=== PATIENT | male | born 1945 | race Caucasian/White ===

== ENCOUNTER 2019-05-15 20:07 | Inpatient (IN) ==
[2019-05-15 20:32] LABS: Basophils # 0.1 10*3/uL (0.0-0.2); Basophils % 0.5 % (0.0-0.8); Eosinophils # 0.2 10*3/uL (0.0-0.87); Eosinophils % 1.5 % (0.00-10.9); Hematocrit 41.5 VOL% (42.0-52.0); Hemoglobin 12.8 GM/DL (14.0-18.0); Immature Granulocytes % 0.7 %; Immature Granulocytes Absolute 0.08 #; Lymphocytes # 2.4 10*3/uL (1.4-4.0); Lymphocytes % 21.6 % (21.2-54.2); Mean Corpuscular HGB Conc 30.8 GM/DL (32-36); Mean Corpuscular Volume 102.2 FL (87-102); Mean Platelet Volume 7.8 FL (9.6-12.0); Monocytes % 6.3 % (1.7-12.7); Neutrophils % 69.4 % (38.7-73.9); Platelet Count 308 T/CUMM (130-400); Red Blood Count 4.06 MC/CUMM (3.8-5.5); Red Cell Distribution Width 14.1 % (9.3-17.3)
[2019-05-15 21:12] LABS: Alanine Aminotransferase 21 U/L (16-61); Albumin 2.8 G/DL (3.4-5.0); Alkaline Phosphatase 98 U/L (45-117); Aspartate Amino Transferase 13 U/L (0-37); Bilirubin,Total < 0.39 MG/DL (0.2-1.0); Blood Urea Nitrogen 10 MG/DL (7-18); Calcium 8.2 MG/DL (8.5-10.1); Glucose 132 MG/DL (74-106); Osmolality,Calculated 279.4 MOS/KG (273-304); Total Protein 6.5 G/DL (6.4-8.3)
[2019-05-16] MEDS ORDERED: PIPERACILLIN/TAZOBACTAM 3,375 MG in SODIUM CHLORIDE 0.9% 100 ML IV STA (00:33)
[2019-05-16] MEDS ORDERED: diphenhydrAMINE CAP 25 MG CAPSULE PO PRN (00:34)
[2019-05-16] MEDS ORDERED: GLUCAGON 1 MG VIAL IM PRN (00:34)
[2019-05-16] MEDS ORDERED: ACETAMINOPHEN 325 MG TABLET PO PRN (00:34)
[2019-05-16] MEDS ORDERED: NICOTINE 21 MG/24 HR PATCH TRANSDERM PRN (00:34)
[2019-05-16] MEDS ORDERED: DEXTROSE 50% 25 GM/50 ML VIAL IV PRN (00:34)
[2019-05-16] MEDS: MORPHINE 4 MG/1 ML VIAL IV PRN ×3 (02:14→11:47)
[2019-05-16] MEDS: VANCOMYCIN INJ 1,250 MG in SODIUM CHLORIDE 0.9% 250 ML IV SCH ×2 (05:25→21:22)
[2019-05-16] MEDS: ONDANSETRON 4 MG/2 ML VIAL IV PRN (06:28)
[2019-05-16] MEDS: INSULIN REGULAR 100 UNIT/ML SUBCUT SCH ×4 (06:52→23:32)
[2019-05-16 08:00] LABS: Basophils # 0.1 10*3/uL (0.0-0.2); Basophils % 0.5 % (0.0-0.8); Eosinophils # 0.2 10*3/uL (0.0-0.87); Eosinophils % 1.6 % (0.00-10.9); Hematocrit 40.2 VOL% (42.0-52.0); Hemoglobin 12.2 GM/DL (14.0-18.0); Immature Granulocytes % 0.8 %; Immature Granulocytes Absolute 0.08 #; Lymphocytes # 2.1 10*3/uL (1.4-4.0); Lymphocytes % 21.4 % (21.2-54.2); Mean Corpuscular HGB Conc 30.3 GM/DL (32-36); Mean Corpuscular Volume 102.8 FL (87-102); Mean Platelet Volume 8.1 FL (9.6-12.0); Monocytes % 5.8 % (1.7-12.7); Neutrophils % 69.9 % (38.7-73.9); Platelet Count 324 T/CUMM (130-400); Red Blood Count 3.91 MC/CUMM (3.8-5.5); Red Cell Distribution Width 14.3 % (9.3-17.3); White Blood Count 9.9 T/CUMM (4-12)
[2019-05-16 08:17] LABS: Alanine Aminotransferase 18 U/L (16-61); Albumin 2.8 G/DL (3.4-5.0); Alkaline Phosphatase 93 U/L (45-117); Aspartate Amino Transferase 12 U/L (0-37); Bilirubin,Total < 0.39 MG/DL (0.2-1.0); Blood Urea Nitrogen 10 MG/DL (7-18); Calcium 7.8 MG/DL (8.5-10.1); Glucose 78 MG/DL (74-106); Osmolality,Calculated 278.3 MOS/KG (273-304); Total Protein 5.5 G/DL (6.4-8.3)
[2019-05-16] MEDS: PANTOPRAZOLE 40 MG TABLET PO SCH (09:24)
[2019-05-16] MEDS: MORPHINE ER 30 MG TABLET PO SCH ×2 (12:57→23:58)
[2019-05-16] MEDS: PIPERACILLIN/TAZOBACTAM 3,375 MG in SODIUM CHLORIDE 0.9% 100 ML IV SCH ×2 (14:11→23:27)
[2019-05-16] MEDS ORDERED: FUROSEMIDE 20 MG TABLET PO PRN (16:27)
[2019-05-16] MEDS: MORPHINE ER 15 MG TABLET PO SCH (17:45)
[2019-05-16] MEDS: METOPROLOL TARTRATE 50 MG TABLET PO SCH (21:21)
[2019-05-16] MEDS: ASCORBIC ACID 500 MG TABLET PO SCH (21:21)
[2019-05-16] MEDS: ROSUVASTATIN 20 MG TABLET PO SCH (21:22)
[2019-05-17] MEDS: PIPERACILLIN/TAZOBACTAM 3,375 MG in SODIUM CHLORIDE 0.9% 100 ML IV SCH ×2 (06:57→15:09)
[2019-05-17] MEDS: INSULIN REGULAR 100 UNIT/ML SUBCUT SCH ×3 (07:03→17:01)
[2019-05-17] MEDS: MORPHINE ER 15 MG TABLET PO SCH ×2 (07:03→17:01)
[2019-05-17] MEDS ORDERED: LIDOCAINE 1% 20 ML VIAL ONE (08:08)
[2019-05-17] MEDS ORDERED: BUPIVACAINE 0.5% 50 ML VIAL ONE (08:08)
[2019-05-17] MEDS ORDERED: LACTATED RINGERS 1,000 ML IV SCH (08:30)
[2019-05-17] MEDS ORDERED: MIDAZOLAM 2 MG/2 ML VIAL ONE (09:02)
[2019-05-17] MEDS ORDERED: PROPOFOL 200 MG/20 ML VIAL IV ONE (09:02)
[2019-05-17] MEDS ORDERED: SODIUM CHLORIDE 0.9% 250 ML IV ONE (09:02)
[2019-05-17] MEDS ORDERED: LIDOCAINE 1% 5 ML VIAL ONE (09:02)
[2019-05-17] MEDS: HYDROmorphone 2 MG/1 ML VIAL IV PRN ×2 (09:10→09:20)
[2019-05-17] MEDS ORDERED: ONDANSETRON 4 MG/2 ML VIAL IV PRN (09:13)
[2019-05-17] MEDS ORDERED: ACETAMINOPHEN 1,000 MG/100 ML VIAL IV ONE (10:15)
[2019-05-17] MEDS: ASPIRIN EC 81 MG TABLET PO SCH (10:30)
[2019-05-17] MEDS: METOPROLOL TARTRATE 50 MG TABLET PO SCH ×2 (10:31→21:47)
[2019-05-17] MEDS: PANTOPRAZOLE 40 MG TABLET PO SCH ×2 (10:31→21:49)
[2019-05-17] MEDS: VANCOMYCIN INJ 1,250 MG in SODIUM CHLORIDE 0.9% 250 ML IV SCH ×2 (10:31→21:52)
[2019-05-17] MEDS: ASCORBIC ACID 500 MG TABLET PO SCH ×2 (10:32→21:48)
[2019-05-17 10:42] LABS: Basophils # 0.1 10*3/uL (0.0-0.2); Basophils % 0.5 % (0.0-0.8); Eosinophils # 0.1 10*3/uL (0.0-0.87); Eosinophils % 1.3 % (0.00-10.9); Hematocrit 38.3 VOL% (42.0-52.0); Hemoglobin 11.8 GM/DL (14.0-18.0); Immature Granulocytes % 0.6 %; Immature Granulocytes Absolute 0.06 #; Lymphocytes # 2.1 10*3/uL (1.4-4.0); Lymphocytes % 19.5 % (21.2-54.2); Mean Corpuscular HGB Conc 30.8 GM/DL (32-36); Mean Corpuscular Volume 102.4 FL (87-102); Mean Platelet Volume 8.6 FL (9.6-12.0); Monocytes % 5.4 % (1.7-12.7); Neutrophils % 72.7 % (38.7-73.9); Platelet Count 296 T/CUMM (130-400); Red Blood Count 3.74 MC/CUMM (3.8-5.5); Red Cell Distribution Width 14.9 % (9.3-17.3); White Blood Count 10.8 T/CUMM (4-12)
[2019-05-17] MEDS: MORPHINE ER 30 MG TABLET PO SCH (11:01)
[2019-05-17] MEDS ORDERED: ALBUTEROL 2.5 MG/3 ML NEB RESP TX PRN (15:47)
[2019-05-17] MEDS ORDERED: MAGNESIUM HYDROXIDE SUSP 30 ML UDCUP PO PRN (15:53)
[2019-05-17] MEDS ORDERED: ALUMINUM/MAGNES/SIMETH MAX STR 30 ML UDCUP PO PRN (15:53)
[2019-05-17] MEDS: ENOXAPARIN 40 MG/0.4 ML SYRINGE SUBCUT SCH (17:01)
[2019-05-17] MEDS: ONDANSETRON 4 MG/2 ML VIAL IV PRN (17:37)
[2019-05-17] MEDS: BACLOFEN 10 MG TABLET PO PRN (21:47)
[2019-05-17] MEDS: GABAPENTIN 300 MG CAPSULE PO SCH (21:47)
[2019-05-17] MEDS: RIVASTIGMINE 3 MG CAPSULE PO SCH (21:47)
[2019-05-17] MEDS: MONTELUKAST 10 MG TABLET PO SCH (21:47)
[2019-05-17] MEDS: ROSUVASTATIN 20 MG TABLET PO SCH (21:47)
[2019-05-17] MEDS: MEMANTINE 10 MG TABLET PO SCH (21:48)
[2019-05-17] MEDS: FERROUS SULFATE 325 MG TABLET PO SCH (21:48)
[2019-05-18] MEDS: PIPERACILLIN/TAZOBACTAM 3,375 MG in SODIUM CHLORIDE 0.9% 100 ML IV SCH ×4 (00:28→23:18)
[2019-05-18] MEDS: INSULIN REGULAR 100 UNIT/ML SUBCUT SCH ×5 (00:29→23:10)
[2019-05-18] MEDS: MORPHINE ER 30 MG TABLET PO SCH ×3 (00:38→23:08)
[2019-05-18] MEDS: MORPHINE ER 15 MG TABLET PO SCH ×2 (07:02→19:12)
[2019-05-18 07:49] LABS: Basophils # 0.1 10*3/uL (0.0-0.2); Basophils % 0.6 % (0.0-0.8); Eosinophils # 0.2 10*3/uL (0.0-0.87); Eosinophils % 1.9 % (0.00-10.9); Hematocrit 43.1 VOL% (42.0-52.0); Hemoglobin 13.2 GM/DL (14.0-18.0); Immature Granulocytes % 0.7 %; Immature Granulocytes Absolute 0.07 #; Lymphocytes % 20.2 % (21.2-54.2); Mean Corpuscular HGB Conc 30.6 GM/DL (32-36); Mean Corpuscular Volume 102.6 FL (87-102); Mean Platelet Volume 7.9 FL (9.6-12.0); Monocytes % 6.2 % (1.7-12.7); Neutrophils % 70.4 % (38.7-73.9); Platelet Count 320 T/CUMM (130-400); Red Cell Distribution Width 14.6 % (9.3-17.3); White Blood Count 9.7 T/CUMM (4-12)
[2019-05-18 07:58] LABS: Alanine Aminotransferase 15 U/L (16-61); Alkaline Phosphatase 93 U/L (45-117); Aspartate Amino Transferase 8 U/L (0-37); Bilirubin,Total < 0.39 MG/DL (0.2-1.0); Blood Urea Nitrogen 6 MG/DL (7-18); Calcium 8.8 MG/DL (8.5-10.1); Glucose 105 MG/DL (74-106); Osmolality,Calculated 283.8 MOS/KG (273-304); Total Protein 6.5 G/DL (6.4-8.3)
[2019-05-18] MEDS: CHOLECALCIFEROL 1,000 UNIT TABLET PO SCH (09:05)
[2019-05-18] MEDS: ASPIRIN EC 81 MG TABLET PO SCH (09:07)
[2019-05-18] MEDS: TAMSULOSIN 0.4 MG CAPSULE PO SCH (09:08)
[2019-05-18] MEDS: DUTASTERIDE 0.5 MG CAPSULE PO SCH (09:08)
[2019-05-18] MEDS: MULTIVITAMIN (CENTRUM) TABLET PO SCH (09:08)
[2019-05-18] MEDS: RIVASTIGMINE 3 MG CAPSULE PO SCH ×2 (09:08→21:48)
[2019-05-18] MEDS: FERROUS SULFATE 325 MG TABLET PO SCH ×2 (09:08→21:47)
[2019-05-18] MEDS: THIAMINE 100 MG TABLET PO SCH (09:09)
[2019-05-18] MEDS: GABAPENTIN 300 MG CAPSULE PO SCH ×3 (09:10→21:47)
[2019-05-18] MEDS: METOPROLOL TARTRATE 50 MG TABLET PO SCH ×2 (09:10→21:48)
[2019-05-18] MEDS: MEMANTINE 10 MG TABLET PO SCH ×2 (09:10→21:47)
[2019-05-18] MEDS: ONDANSETRON 4 MG/2 ML VIAL IV PRN ×2 (09:35→15:53)
[2019-05-18] MEDS: MORPHINE IR 15 MG TABLET PO PRN ×2 (09:40→15:52)
[2019-05-18] MEDS: PANTOPRAZOLE 40 MG TABLET PO SCH ×2 (10:03→21:47)
[2019-05-18] MEDS: ASCORBIC ACID 500 MG TABLET PO SCH ×2 (10:03→21:49)
[2019-05-18] MEDS: VANCOMYCIN INJ 1,250 MG in SODIUM CHLORIDE 0.9% 250 ML IV SCH ×2 (10:04→13:30)
[2019-05-18] MEDS: ENOXAPARIN 40 MG/0.4 ML SYRINGE SUBCUT SCH (17:05)
[2019-05-18] MEDS: BACLOFEN 10 MG TABLET PO PRN (21:47)
[2019-05-18] MEDS: ROSUVASTATIN 20 MG TABLET PO SCH (21:47)
[2019-05-18] MEDS: MONTELUKAST 10 MG TABLET PO SCH (21:49)
[2019-05-19] MEDS: MORPHINE ER 15 MG TABLET PO SCH ×2 (05:19→18:08)
[2019-05-19] MEDS: VANCOMYCIN INJ 1,250 MG in SODIUM CHLORIDE 0.9% 250 ML IV SCH ×2 (05:55→16:40)
[2019-05-19] MEDS: INSULIN REGULAR 100 UNIT/ML SUBCUT SCH ×3 (06:04→18:05)
[2019-05-19 06:14] LABS: Basophils # 0.1 10*3/uL (0.0-0.2); Basophils % 0.6 % (0.0-0.8); Eosinophils # 0.2 10*3/uL (0.0-0.87); Eosinophils % 1.7 % (0.00-10.9); Hematocrit 41.8 VOL% (42.0-52.0); Hemoglobin 13.1 GM/DL (14.0-18.0); Immature Granulocytes % 0.5 %; Immature Granulocytes Absolute 0.05 #; Lymphocytes % 22.1 % (21.2-54.2); Mean Corpuscular HGB Conc 31.3 GM/DL (32-36); Mean Corpuscular Volume 100.2 FL (87-102); Mean Platelet Volume 8.1 FL (9.6-12.0); Monocytes % 6.2 % (1.7-12.7); Neutrophils % 68.9 % (38.7-73.9); Platelet Count 363 T/CUMM (130-400); Red Blood Count 4.17 MC/CUMM (3.8-5.5); Red Cell Distribution Width 14.7 % (9.3-17.3); White Blood Count 9.3 T/CUMM (4-12)
[2019-05-19 06:40] LABS: Albumin 2.8 G/DL (3.4-5.0); Bilirubin,Total 0.5 MG/DL (0.2-1.0); Calcium 8.7 MG/DL (8.5-10.1); Total Protein 6.2 G/DL (6.4-8.3)
[2019-05-19 07:33] LABS: Anisocytosis 1+; Macrocytosis 1+; Platelet Estimate Normal
[2019-05-19] MEDS: PIPERACILLIN/TAZOBACTAM 3,375 MG in SODIUM CHLORIDE 0.9% 100 ML IV SCH ×3 (08:38→23:53)
[2019-05-19] MEDS: ASPIRIN EC 81 MG TABLET PO SCH (08:39)
[2019-05-19] MEDS: THIAMINE 100 MG TABLET PO SCH (08:39)
[2019-05-19] MEDS: ONDANSETRON 4 MG/2 ML VIAL IV PRN (08:39)
[2019-05-19] MEDS: METOPROLOL TARTRATE 50 MG TABLET PO SCH ×2 (08:41→22:35)
[2019-05-19] MEDS: CHOLECALCIFEROL 1,000 UNIT TABLET PO SCH (08:41)
[2019-05-19] MEDS: TAMSULOSIN 0.4 MG CAPSULE PO SCH (08:41)
[2019-05-19] MEDS: RIVASTIGMINE 3 MG CAPSULE PO SCH ×2 (08:41→22:36)
[2019-05-19] MEDS: DUTASTERIDE 0.5 MG CAPSULE PO SCH (08:41)
[2019-05-19] MEDS: PANTOPRAZOLE 40 MG TABLET PO SCH ×2 (08:42→22:36)
[2019-05-19] MEDS: MULTIVITAMIN (CENTRUM) TABLET PO SCH (08:42)
[2019-05-19] MEDS: MEMANTINE 10 MG TABLET PO SCH ×2 (08:42→22:35)
[2019-05-19] MEDS: ASCORBIC ACID 500 MG TABLET PO SCH ×2 (08:42→20:43)
[2019-05-19] MEDS: FERROUS SULFATE 325 MG TABLET PO SCH ×2 (08:42→22:36)
[2019-05-19] MEDS: GABAPENTIN 300 MG CAPSULE PO SCH ×3 (08:42→22:36)
[2019-05-19] MEDS: MORPHINE IR 15 MG TABLET PO PRN ×3 (11:00→22:38)
[2019-05-19] MEDS: MORPHINE ER 30 MG TABLET PO SCH ×2 (12:26→23:58)
[2019-05-19] MEDS: ENOXAPARIN 40 MG/0.4 ML SYRINGE SUBCUT SCH (16:37)
[2019-05-19] MEDS: ROSUVASTATIN 20 MG TABLET PO SCH (22:35)
[2019-05-19] MEDS: APIXABAN 5 MG TABLET PO SCH (22:35)
[2019-05-19] MEDS: MONTELUKAST 10 MG TABLET PO SCH (22:36)
[2019-05-19] MEDS: BACLOFEN 10 MG TABLET PO PRN (22:36)
[2019-05-20] MEDS: INSULIN REGULAR 100 UNIT/ML SUBCUT SCH ×2 (00:01→05:11)
[2019-05-20] MEDS: VANCOMYCIN INJ 1,250 MG in SODIUM CHLORIDE 0.9% 250 ML IV SCH (05:02)
[2019-05-20] MEDS: MORPHINE ER 15 MG TABLET PO SCH (05:13)
[2019-05-20] MEDS: MORPHINE IR 15 MG TABLET PO PRN (05:14)
[2019-05-20] MEDS: PANTOPRAZOLE 40 MG TABLET PO SCH (08:26)
[2019-05-20] MEDS: THIAMINE 100 MG TABLET PO SCH (08:26)
[2019-05-20] MEDS: FERROUS SULFATE 325 MG TABLET PO SCH (08:26)
[2019-05-20] MEDS: CHOLECALCIFEROL 1,000 UNIT TABLET PO SCH (08:26)
[2019-05-20] MEDS: DUTASTERIDE 0.5 MG CAPSULE PO SCH (08:26)
[2019-05-20] MEDS: MEMANTINE 10 MG TABLET PO SCH (08:26)
[2019-05-20] MEDS: MULTIVITAMIN (CENTRUM) TABLET PO SCH (08:26)
[2019-05-20] MEDS: APIXABAN 5 MG TABLET PO SCH (08:26)
[2019-05-20] MEDS: TAMSULOSIN 0.4 MG CAPSULE PO SCH (08:27)
[2019-05-20] MEDS: METOPROLOL TARTRATE 50 MG TABLET PO SCH (08:27)
[2019-05-20] MEDS: PIPERACILLIN/TAZOBACTAM 3,375 MG in SODIUM CHLORIDE 0.9% 100 ML IV SCH (08:27)
[2019-05-20] MEDS: BACLOFEN 10 MG TABLET PO PRN (08:27)
[2019-05-20] MEDS: GABAPENTIN 300 MG CAPSULE PO SCH (08:27)
[2019-05-20] MEDS: RIVASTIGMINE 3 MG CAPSULE PO SCH (08:27)
[2019-05-20] MEDS: ASCORBIC ACID 500 MG TABLET PO SCH (08:27)
[2019-05-20] MEDS: ASPIRIN EC 81 MG TABLET PO SCH (08:27)
[2019-05-20 09:19] VITALS: BP 183/99
== END 2019-05-20 10:55 | disposition home health service (06) | DRG 603 ==
LOC: N.ED 20:07 → SUATTDRO 05-16 00:36 → N.EDINP 05-16 00:36 → N.5E 05-16 01:49
PROVIDERS: ADMIT Internal Medicine; ATTEND Internal Medicine

== ENCOUNTER 2020-01-09 14:47 | Inpatient (IN) ==
[2020-01-09] MEDS ORDERED: ONDANSETRON 4 MG/2 ML VIAL IV STA ×2 (15:13→17:26)
[2020-01-09] MEDS ORDERED: SODIUM CHLORIDE 0.9% 1,000 ML IV STA (15:13)
[2020-01-09] MEDS ORDERED: PANTOPRAZOLE 40 MG VIAL IV STA (15:13)
[2020-01-09] MEDS ORDERED: fentaNYL 100 MCG/2 ML VIAL IV STA ×2 (15:14→17:26)
[2020-01-09 15:41] LABS: Basophils # 0.1 10*3/uL (0.0-0.2); Basophils % 0.4 % (0.0-0.8); Eosinophils # 0.2 10*3/uL (0.0-0.87); Eosinophils % 0.8 % (0.00-10.9); Hematocrit 38.9 VOL% (42.0-52.0); Hemoglobin 12.4 GM/DL (14.0-18.0); Immature Granulocytes % 0.7 %; Immature Granulocytes Absolute 0.13 #; Lymphocytes # 3.9 10*3/uL (1.4-4.0); Mean Corpuscular HGB Conc 31.9 GM/DL (32-36); Mean Corpuscular Volume 101.3 FL (87-102); Monocytes % 5.4 % (1.7-12.7); Neutrophils % 70.7 % (38.7-73.9); Platelet Count 251 T/CUMM (130-400); Red Blood Count 3.84 MC/CUMM (3.8-5.5); Red Cell Distribution Width 13.3 % (9.3-17.3); White Blood Count 17.7 T/CUMM (4-12)
[2020-01-09 15:51] LABS: PT Patient Result 11.3 SECS (9.6-12.2); Partial Thromboplastin Time 26.1 SECS (20.8-36.0)
[2020-01-09 16:00] LABS: Alanine Aminotransferase 24 U/L (16-61); Alkaline Phosphatase 79 U/L (45-117); Aspartate Amino Transferase 12 U/L (0-37); Bilirubin,Total < 0.39 MG/DL (0.2-1.0); Blood Urea Nitrogen 26 MG/DL (7-18); Calcium 8.4 MG/DL (8.5-10.1); Estimated Glom Filtration Rate 107 ML/MIN; Glucose 163 MG/DL (74-106); Osmolality,Calculated 283.7 MOS/KG (273-304)
[2020-01-09] MEDS ORDERED: PIPERACILLIN/TAZOBACTAM 3,375 MG in SODIUM CHLORIDE 0.9% 100 ML IV STA (16:16)
[2020-01-09] MEDS ORDERED: VANCOMYCIN INJ 1,000 MG in SODIUM CHLORIDE 0.9% 250 ML IV STA (16:16)
[2020-01-09] MEDS ORDERED: METOCLOPRAMIDE 10 MG/2 ML VIAL ONE (17:10)
[2020-01-09] MEDS ORDERED: METOCLOPRAMIDE 10 MG/2 ML VIAL IV STA (17:26)
[2020-01-09] MEDS ORDERED: ALBUTEROL 2.5 MG/3 ML NEB RESP TX PRN (18:36)
[2020-01-09] MEDS ORDERED: SODIUM CHLORIDE 0.9% 1,000 ML IV PRN (18:38)
[2020-01-09] MEDS ORDERED: ONDANSETRON 4 MG/2 ML VIAL IV PRN (18:59)
[2020-01-09] MEDS: SODIUM CHLORIDE 0.9% 1,000 ML IV SCH (20:05)
[2020-01-09] MEDS: PANTOPRAZOLE 40 MG VIAL IV SCH (20:15)
[2020-01-09 20:17] LABS: Hematocrit 32.8 VOL% (42.0-52.0); Hemoglobin 10.4 GM/DL (14.0-18.0)
[2020-01-09] MEDS ORDERED: FUROSEMIDE 40 MG/4 ML VIAL IV ONE (21:13)
[2020-01-09] MEDS: LEVOFLOXACIN INJ 750 MG in PREMIX 1 EACH IV SCH (21:32)
[2020-01-09] MEDS: VASOPRESSIN 100 UNITS in SODIUM CHLORIDE 0.9% 95 ML IV SCH (23:13)
[2020-01-09] MEDS: PROMETHAZINE INJ 12.5 MG in SODIUM CHLORIDE 0.9% 50 ML IV PRN (23:50)
[2020-01-10 01:01] LABS: Hematocrit 29.1 VOL% (42.0-52.0)
[2020-01-10] MEDS ORDERED: SODIUM CHLORIDE 0.9% 1,000 ML IV ONE (01:46)
[2020-01-10] MEDS ORDERED: PHENYLEPHRINE DRIP 40 MG/250 ML PREMIX IV PRN ×2 (01:46→15:35)
[2020-01-10] MEDS: ALBUMIN 5% 25 GM in PREMIX 1 EACH IV ONE ×2 (02:06→04:38)
[2020-01-10] MEDS: VASOPRESSIN 100 UNITS in SODIUM CHLORIDE 0.9% 95 ML IV SCH ×6 (02:48→20:36)
[2020-01-10 05:08] LABS: Basophils % 0.2 % (0.0-0.8); Hemoglobin 10.5 GM/DL (14.0-18.0); Immature Granulocytes % 1.3 %; Immature Granulocytes Absolute 0.26 #; Lymphocytes # 1.8 10*3/uL (1.4-4.0); Lymphocytes % 8.9 % (21.2-54.2); Mean Corpuscular HGB Conc 31.8 GM/DL (32-36); Mean Corpuscular Volume 97.6 FL (87-102); Mean Platelet Volume 9.3 FL (9.6-12.0); Monocytes % 6.4 % (1.7-12.7); Neutrophils % 83.2 % (38.7-73.9); Platelet Count 173 T/CUMM (130-400); Red Blood Count 3.38 MC/CUMM (3.8-5.5); Red Cell Distribution Width 14.2 % (9.3-17.3); White Blood Count 19.7 T/CUMM (4-12)
[2020-01-10 05:23] LABS: Albumin 2.4 G/DL (3.4-5.0); Bilirubin,Total 0.8 MG/DL (0.2-1.0); Calcium 7.5 MG/DL (8.5-10.1); Osmolality,Calculated 296.8 MOS/KG (273-304); Total Protein 4.6 G/DL (6.4-8.3)
[2020-01-10] MEDS: SODIUM CHLORIDE 0.9% 1,000 ML IV SCH ×2 (05:51→15:31)
[2020-01-10] MEDS: MORPHINE 4 MG/1 ML VIAL IV PRN ×3 (06:14→23:54)
[2020-01-10 06:44] LABS: Hematocrit 30.3 VOL% (42.0-52.0); Hemoglobin 9.8 GM/DL (14.0-18.0)
[2020-01-10] MEDS: NICOTINE 21 MG/24 HR PATCH TRANSDERM SCH (09:17)
[2020-01-10] MEDS: PANTOPRAZOLE 40 MG VIAL IV SCH (09:18)
[2020-01-10] MEDS ORDERED: SODIUM CHLORIDE 0.9% 500 ML IV ONE (09:58)
[2020-01-10 10:20] LABS: Hematocrit 28.2 VOL% (42.0-52.0); Hemoglobin 9.3 GM/DL (14.0-18.0)
[2020-01-10] MEDS ORDERED: KETAMINE 500 MG/10 ML VIAL ONE (12:07)
[2020-01-10] MEDS ORDERED: MIDAZOLAM 2 MG/2 ML VIAL ONE (12:08)
[2020-01-10 13:06] LABS: Troponin I 0.441 NG/ML (0.00-0.045)
[2020-01-10 15:08] LABS: Troponin I 0.469 NG/ML (0.00-0.045)
[2020-01-10 17:39] LABS: Hematocrit 24.4 VOL% (42.0-52.0); Hemoglobin 8.1 GM/DL (14.0-18.0)
[2020-01-10] MEDS ORDERED: SODIUM CHLORIDE 0.9% 1,000 ML IV PRN (17:58)
[2020-01-10] MEDS: LEVOFLOXACIN INJ 750 MG in PREMIX 1 EACH IV SCH (18:32)
[2020-01-10] MEDS: PROMETHAZINE INJ 12.5 MG in SODIUM CHLORIDE 0.9% 50 ML IV PRN (18:43)
[2020-01-10] MEDS: PANTOPRAZOLE 40 MG TABLET PO SCH (20:13)
[2020-01-11 00:33] VITALS: BP 112/68
[2020-01-11] MEDS: VASOPRESSIN 100 UNITS in SODIUM CHLORIDE 0.9% 95 ML IV SCH ×3 (00:33→09:35)
[2020-01-11 02:17] LABS: Troponin I 0.423 NG/ML (0.00-0.045)
[2020-01-11] MEDS: SODIUM CHLORIDE 0.9% 1,000 ML IV SCH ×2 (02:40→12:06)
[2020-01-11 03:07] LABS: Basophils % 0.2 % (0.0-0.8); Eosinophils % 0.1 % (0.00-10.9); Hemoglobin 9.6 GM/DL (14.0-18.0); Immature Granulocytes % 0.8 %; Immature Granulocytes Absolute 0.14 #; Lymphocytes # 2.5 10*3/uL (1.4-4.0); Lymphocytes % 14.1 % (21.2-54.2); Mean Corpuscular Volume 96.8 FL (87-102); Mean Platelet Volume 9.6 FL (9.6-12.0); Monocytes % 7.5 % (1.7-12.7); Neutrophils % 77.3 % (38.7-73.9); Platelet Count 157 T/CUMM (130-400); Red Cell Distribution Width 14.4 % (9.3-17.3); White Blood Count 17.4 T/CUMM (4-12)
[2020-01-11] MEDS: diphenhydrAMINE 50 MG/1 ML VIAL IV PRN ×2 (03:07→20:14)
[2020-01-11] MEDS ORDERED: ACETAMINOPHEN 325 MG TABLET PO PRN (03:21)
[2020-01-11] MEDS: ALBUTEROL/IPRATROPIUM 3 ML NEB RESP TX PRN (03:35)
[2020-01-11] MEDS: MORPHINE 4 MG/1 ML VIAL IV PRN ×4 (06:17→23:55)
[2020-01-11] MEDS: PANTOPRAZOLE 40 MG TABLET PO SCH ×2 (06:18→18:01)
[2020-01-11] MEDS: NICOTINE 21 MG/24 HR PATCH TRANSDERM SCH (09:36)
[2020-01-11 10:31] LABS: Alanine Aminotransferase 14 U/L (16-61); Albumin 2.2 G/DL (3.4-5.0); Alkaline Phosphatase 38 U/L (45-117); Aspartate Amino Transferase 22 U/L (0-37); Bilirubin,Total < 0.39 MG/DL (0.2-1.0); Blood Urea Nitrogen 18 MG/DL (7-18); Calcium 7.4 MG/DL (8.5-10.1); Estimated Glom Filtration Rate 126 ML/MIN; Glucose 83 MG/DL (74-106); Osmolality,Calculated 294.3 MOS/KG (273-304); Total Protein 4.3 G/DL (6.4-8.3)
[2020-01-11] MEDS ORDERED: BACLOFEN 10 MG TABLET PO PRN (11:23)
[2020-01-11] MEDS ORDERED: DICLOFENAC POTASSIUM 50 MG PO SCH (11:30)
[2020-01-11] MEDS: THIAMINE 100 MG TABLET PO SCH (12:03)
[2020-01-11] MEDS: CHOLECALCIFEROL 5,000 UNIT TABLET PO SCH (12:04)
[2020-01-11] MEDS: TAMSULOSIN 0.4 MG CAPSULE PO SCH (12:04)
[2020-01-11] MEDS: DUTASTERIDE 0.5 MG CAPSULE PO SCH (12:04)
[2020-01-11] MEDS: MULTIVITAMIN (CENTRUM) TABLET PO SCH (12:04)
[2020-01-11] MEDS: MAGNESIUM GLUCONATE 500 MG TABLET PO SCH ×2 (12:04→20:09)
[2020-01-11] MEDS: MEMANTINE 10 MG TABLET PO SCH ×2 (12:04→20:12)
[2020-01-11] MEDS: MORPHINE IR 15 MG TABLET PO SCH ×2 (12:04→20:58)
[2020-01-11] MEDS: POTASSIUM CHLORIDE RIDER 10 MEQ in PREMIX 1 EACH IV SCH ×4 (12:05→17:59)
[2020-01-11] MEDS: MORPHINE ER 30 MG TABLET PO SCH (12:05)
[2020-01-11] MEDS: RIVASTIGMINE 3 MG CAPSULE PO SCH ×2 (12:05→20:10)
[2020-01-11] MEDS: LACTATED RINGERS 1,000 ML IV SCH (12:05)
[2020-01-11] MEDS: FLUTICASONE/SALMETEROL 250-50 DISKUS 14 DOSE INH SCH ×2 (12:52→20:09)
[2020-01-11] MEDS: DICLOFENAC 1% GEL 100 GM TUBE TOP SCH ×3 (13:56→20:09)
[2020-01-11] MEDS: GABAPENTIN 300 MG CAPSULE PO SCH ×2 (15:49→20:11)
[2020-01-11] MEDS: METHOCARBAMOL 750 MG TABLET PO SCH ×2 (15:49→20:09)
[2020-01-11] MEDS: LEVOFLOXACIN INJ 750 MG in PREMIX 1 EACH IV SCH (18:01)
[2020-01-11] MEDS ORDERED: MONTELUKAST 10 MG TABLET PO SCH (21:00)
[2020-01-11] MEDS ORDERED: ROSUVASTATIN 20 MG TABLET PO SCH (21:00)
[2020-01-12] MEDS: ALBUTEROL/IPRATROPIUM 3 ML NEB RESP TX PRN (01:52)
[2020-01-12 04:38] LABS: Basophils % 0.2 % (0.0-0.8); Eosinophils # 0.1 10*3/uL (0.0-0.87); Hematocrit 28.6 VOL% (42.0-52.0); Hemoglobin 9.3 GM/DL (14.0-18.0); Immature Granulocytes % 0.7 %; Immature Granulocytes Absolute 0.08 #; Lymphocytes # 2.9 10*3/uL (1.4-4.0); Lymphocytes % 26.4 % (21.2-54.2); Mean Corpuscular HGB Conc 32.5 GM/DL (32-36); Mean Corpuscular Volume 96.6 FL (87-102); Mean Platelet Volume 9.1 FL (9.6-12.0); Monocytes % 7.2 % (1.7-12.7); NRBC # 0.02 10*3/uL; Neutrophils % 64.5 % (38.7-73.9); Red Blood Count 2.96 MC/CUMM (3.8-5.5); Red Cell Distribution Width 14.6 % (9.3-17.3); White Blood Count 10.9 T/CUMM (4-12)
[2020-01-12 04:39] LABS: Platelet Count 126 T/CUMM (130-400)
[2020-01-12 04:44] LABS: Calcium 8.2 MG/DL (8.5-10.1); Osmolality,Calculated 285.7 MOS/KG (273-304)
[2020-01-12] MEDS: PANTOPRAZOLE 40 MG TABLET PO SCH (07:03)
[2020-01-12] MEDS: MORPHINE 4 MG/1 ML VIAL IV PRN (07:53)
[2020-01-12] MEDS: LACTATED RINGERS 1,000 ML IV SCH (09:11)
[2020-01-12] MEDS: NICOTINE 21 MG/24 HR PATCH TRANSDERM SCH (10:37)
[2020-01-12] MEDS: DICLOFENAC 1% GEL 100 GM TUBE TOP SCH ×2 (10:37→14:55)
[2020-01-12] MEDS: FLUTICASONE/SALMETEROL 250-50 DISKUS 14 DOSE INH SCH (10:37)
[2020-01-12] MEDS: MAGNESIUM GLUCONATE 500 MG TABLET PO SCH (10:38)
[2020-01-12] MEDS: DUTASTERIDE 0.5 MG CAPSULE PO SCH (10:38)
[2020-01-12] MEDS: MORPHINE IR 15 MG TABLET PO SCH (10:38)
[2020-01-12] MEDS: RIVASTIGMINE 3 MG CAPSULE PO SCH (10:38)
[2020-01-12] MEDS: MORPHINE ER 30 MG TABLET PO SCH (10:38)
[2020-01-12] MEDS: GABAPENTIN 300 MG CAPSULE PO SCH (10:39)
[2020-01-12] MEDS: TAMSULOSIN 0.4 MG CAPSULE PO SCH (10:39)
[2020-01-12] MEDS: METHOCARBAMOL 750 MG TABLET PO SCH (10:39)
[2020-01-12] MEDS: MEMANTINE 10 MG TABLET PO SCH (10:39)
[2020-01-12] MEDS: CHOLECALCIFEROL 5,000 UNIT TABLET PO SCH (10:39)
[2020-01-12] MEDS: MULTIVITAMIN (CENTRUM) TABLET PO SCH (10:40)
[2020-01-12] MEDS: THIAMINE 100 MG TABLET PO SCH (10:40)
[2020-01-12] MEDS ORDERED: POTASSIUM CHLORIDE 20 MEQ TABLET PO ONE (10:59)
[2020-01-12] MEDS ORDERED: MAGNESIUM SULF RIDER 2 GM in PREMIX 1 EACH IV ONE (11:00)
[2020-01-12] MEDS ORDERED: METOPROLOL TARTRATE 25 MG TABLET PO SCH (11:30)
[2020-01-12] MEDS ORDERED: FERROUS SULFATE 325 MG TABLET PO SCH (21:00)
[2020-01-12] MEDS ORDERED: PANTOPRAZOLE 40 MG TABLET PO SCH (21:00)
== END 2020-01-12 14:00 | disposition home or self-care (01) | DRG 368 ==
LOC: N.ED 14:47 → N.EDINP 18:36 → N.CC 19:10
PROVIDERS: ADMIT Family Medicine; ATTEND Family Medicine